=== PATIENT | male | born 2000 | race Caucasian/White ===

== ENCOUNTER 2021-05-06 17:07 | Emergency (ER) | payer MEDICAID ==
[~2021-05-06] VITALS: Ht 172.7 cm; Wt 78.0 kg
[2021-05-06] MEDS ORDERED: TETANUS, DIPHTHERIA, PERTUSSIS VAC/PF 0.5ML (>7YR OLD) IM ONE (17:15)
[2021-05-06] MEDS ORDERED: FENTANYL CITRATE/PF 50MCG/ML 2ML VIAL IV ONE ×4 (17:15→19:00)
[2021-05-06] MEDS ORDERED: LIDOCAINE HCL 1% 20ML VIAL (Pyxis) INJ INFIL ONE (17:15)
[2021-05-06] MEDS ORDERED: LIDOCAINE HCL/EPINEPHRINE 1%-EPI 1:100,000 50 ML VIAL INFIL ONE (17:15)
[2021-05-06] MEDS ORDERED: LIDOCAINE HCL/EPINEPHRINE 1%-EPI 1:100,000 20 ML VIAL INFIL NR (17:30)
[2021-05-06 17:50] LABS: BASOPHILS % 0.2 % (0.0-2.0); EOSINOPHILS % 0.3 % (0.0-5.0); HEMATOCRIT. 42.3 % (42.0-52.0); HEMOGLOBIN. 14.9 g/dL (14.0-18.0); LYMPHOCYTES % 37.2 % (20.0-50.0); MEAN CORPUSCULAR HEMOGLOBIN 30.4 pg (28.0-32.0); MEAN CORPUSCULAR VOLUME 86.5 fL (80.0-94.0); MEAN PLATELET VOLUME 7.1 fl (7.4-10.4); MONOCYTES % 8.7 % (2.0-8.0); NEUTROPHILS % 53.6 % (40.0-76.0); PLATELET 326 x1000/uL (130-400); RED BLOOD CELL COUNT 4.89 mill/uL (4.7-6.1); RED CELL DISTRIBUTION WIDTH 13.4 % (11.6-14.6)
[2021-05-06 17:59] LABS: CHLORIDE 107 mEq/L (98-107)
[2021-05-06] MEDS ORDERED: ONDANSETRON HCL 4MG/2ML INJ IV ONE (18:30)
[2021-05-06] MEDS ORDERED: FENTANYL CITRATE/PF 50MCG/ML 2ML VIAL IV STA (19:05)
[2021-05-06 22:30] VITALS: BP 132/80
[2021-05-06] MEDS ORDERED: IOHEXOL-350 100 ML BOTTLE ONE (22:44)
== END 2021-05-06 23:03 | disposition home or self-care (01) ==
LOC: ER 17:07
DX: S21.112A Laceration without foreign body of left front wall of thorax without penetration into thoracic cavity, initial encounter (principal); X58.XXXA Exposure to other specified factors, initial encounter; Y93.89 Activity, other specified; Y92.89 Other specified places as the place of occurrence of the external cause; Y99.8 Other external cause status; F17.290 Nicotine dependence, other tobacco product, uncomplicated
CPT/HCPCS: 12005; 36415; 71045; 71275; 73030; 73060; 73090; 80053; 83880; 84484; 85025; 90471; 90715; 93005; 96374; 96375; 96376; 99285; J2405; J3010; J3490; Q9967; Z7610

== ENCOUNTER 2021-05-17 11:58 | Emergency (ER) | payer MEDICAID ==
[~2021-05-17] VITALS: Ht 182.9 cm; Wt 95.0 kg
[2021-05-17 12:05] VITALS: BP 123/72
[2021-05-17] MEDS ORDERED: BACITRACIN ZINC OINT UDPKT TOP ONE (12:30)
== END 2021-05-17 14:17 | disposition home or self-care (01) ==
LOC: ER 11:58
DX: S41.112D Laceration without foreign body of left upper arm, subsequent encounter (principal); X58.XXXD Exposure to other specified factors, subsequent encounter
CPT/HCPCS: 99281